=== PATIENT | male | born 1950 | race Caucasian/White ===

== ENCOUNTER 2016-04-17 08:43 | Outpatient (CLI) | payer OTHER ==
[~2016-04-17 08:43] MED LIST: BAYER ASPIRIN E81 M1 PO; CHLORTHALIDONE25 MG PO; IRON325 MG PO; LISINOPRIL10 MG PO; METOPROLOL SUCC25 MG PO; PREVACID30 MG PO
--- NOTE | 2016-04-17 11:32 | DIAGNOSTIC IMAGING REPORT ---
PROCEDURE: MR UPPER EXTREMITY W/O CONT-LT INDICATION: LEFT SHOULDER PAIN (PT HAS STENTS) TECHNIQUE: PD and FAT-SAT PD, axial, and coronal-oblique images. PD and STIR sagittal-oblique images. COMPARISON: Left shoulder x-ray 01/06/2016 FINDINGS: Prominent motion artifacts. Mild AC joint degenerative changes with type 2 acromion resulting in mild impingement. Findings suspicious for a partial thickness tear of the distal supraspinatus tendon on the bursal side with a small subdeltoid effusion. There is an 8 mm low signal structure adjacent to the greater tuberosity consistent with calcific tendonitis. Normal glenoid labrum. Normal bicipital tendon. Normal glenohumeral ligaments. There is no evidence of muscular atrophy. Bones are unremarkable. IMPRESSION: 1. Prominent motion artifacts. Recommend repeat coronal proton density fat sat and sagittal STIR sequences. 2. Findings suspicious for partial tear of the distal supraspinatus tendon (bursal side) 3. Mild impingement 4. Calcific tendonitis 5. Small subdeltoid effusion.
[2016-08-09] MEDS ORDERED: CHLORTHALIDONE25 MG PO (18:07)
[2016-08-09] MEDS ORDERED: IRON PO (18:08)
[2016-08-09] MEDS ORDERED: ATORVASTATIN CA40 MG PO (18:08)
[2016-08-09] MEDS ORDERED: BACTRIM1 TAB PO (18:09)
[2016-08-09] MEDS ORDERED: MELATONIN10 M1 PO (18:09)
== END 2016-04-17 23:00 ==
LOC: MRI SRH 08:43
DX: M75.32 Calcific tendinitis of left shoulder (principal); M25.412 Effusion, left shoulder

== ENCOUNTER 2016-04-20 16:13 | Outpatient (CLI) | payer OTHER ==
--- NOTE | 2016-04-20 18:59 | DIAGNOSTIC IMAGING REPORT ---
PROCEDURE: MR UPPER EXTREMITY W/O CONT-LT INDICATION: LEFT SHOULDER PAIN TECHNIQUE: PD and FAT-SAT PD, axial, and coronal-oblique images. PD and STIR sagittal-oblique images. COMPARISON: Left shoulder MRI 04/17/2016 FINDINGS: Mild motion artifacts. Additional sequences confirm fraying/partial tear of the distal supraspinatus tendon on the bursal side. IMPRESSION: 1. Confirmed fraying/partial tear of the supraspinatus tendon distally (bursal side)
[2016-08-09] MEDS ORDERED: CHLORTHALIDONE25 MG PO (18:07)
[2016-08-09] MEDS ORDERED: ATORVASTATIN CA40 MG PO (18:08)
[2016-08-09] MEDS ORDERED: IRON PO (18:08)
[2016-08-09] MEDS ORDERED: MELATONIN10 M1 PO (18:09)
[2016-08-09] MEDS ORDERED: BACTRIM1 TAB PO (18:09)
== END 2016-04-20 23:00 ==
LOC: MRI SRH 16:13
DX: S46.012A Strain of muscle(s) and tendon(s) of the rotator cuff of left shoulder, initial encounter (principal)

== ENCOUNTER 2016-06-09 12:16 | Outpatient (CLI) | payer OTHER ==
--- NOTE | 2016-06-09 12:38 | DIAGNOSTIC IMAGING REPORT ---
PROCEDURE: XR CHEST 2 VIEW INDICATION: PRE OP TECHNIQUE: PA and lateral views. COMPARISON: None. FINDINGS: Lungs are clear. Heart and mediastinum are normal. Thorax is normal. IMPRESSION: 1. Negative chest.
[2016-08-09] MEDS ORDERED: CHLORTHALIDONE25 MG PO (18:07)
[2016-08-09] MEDS ORDERED: IRON PO (18:08)
[2016-08-09] MEDS ORDERED: ATORVASTATIN CA40 MG PO (18:08)
[2016-08-09] MEDS ORDERED: BACTRIM1 TAB PO (18:09)
[2016-08-09] MEDS ORDERED: MELATONIN10 M1 PO (18:09)
== END 2016-06-09 23:00 ==
LOC: XR SRH 12:16
DX: Z01.818 Encounter for other preprocedural examination (principal)

== ENCOUNTER 2016-07-28 11:23 | Outpatient (CLI) | payer OTHER ==
--- NOTE | 2016-07-28 11:48 | DIAGNOSTIC IMAGING REPORT ---
PROCEDURE: XR FOOT 3 VIEWS - LEFT INDICATION: L FOOT PAIN TECHNIQUE: Three views. COMPARISON: None. FINDINGS: Osseous structures and joint spaces are normal. IMPRESSION: 1. Normal left foot.
[2016-08-09] MEDS ORDERED: CHLORTHALIDONE25 MG PO (18:07)
[2016-08-09] MEDS ORDERED: ATORVASTATIN CA40 MG PO (18:08)
[2016-08-09] MEDS ORDERED: IRON PO (18:08)
[2016-08-09] MEDS ORDERED: MELATONIN10 M1 PO (18:09)
[2016-08-09] MEDS ORDERED: BACTRIM1 TAB PO (18:09)
== END 2016-07-28 23:00 ==
LOC: XR SRH 11:23
DX: M79.672 Pain in left foot (principal)